=== PATIENT | male | born 1995 | race African-American/Black ===

== ENCOUNTER 2017-04-07 08:44 | Emergency (ER) | payer SELFPAY ==
[~2017-04-07] VITALS: Ht 175.3 cm; Wt 95.3 kg
[~2017-04-07 08:44] MED LIST: HYDR15SO4 PO
[2017-04-07 09:00] VITALS: BP 130/78
[2017-04-07] MEDS ORDERED: [UNRECOGNIZED DRUG - CODE] MM (09:20)
[2017-04-07] MEDS ORDERED: AMOX500C PO (09:20)
--- NOTE | 2017-04-07 09:20 | PHYS DOC ---
Past Medical History Past Medical History: Asthma Past Surgical History: No Surgical History Alcohol Use: Occasionally Drug Use: Marijuana Adult General Chief Complaint Chief Complaint: DENTAL PROBLEM HPI HPI Patient is a 21 year old male presents to the ED complaining of dental pain x 3 days. States he pulled his tooth out a week ago and notice a sore on his gums forming. Describes the pain as burning. Rates the pain as 7/10. Denies chest pain, shortness of breath, nausea/vomiting, dizziness, weakness, difficulty swallowing or tongue swelling. Review of Systems Review of Systems Constitutional: Denies fever or chills [] Eyes: Denies change in visual acuity, redness, or eye pain [] HENT: Denies nasal congestion or sore throat [] Respiratory: Denies cough or shortness of breath [] Cardiovascular: No additional information not addressed in HPI [] GI: Denies abdominal pain, nausea, vomiting, bloody stools or diarrhea [] : Denies dysuria or hematuria [] Musculoskeletal: Denies back pain or joint pain [] Integument: Denies rash or skin lesions [] Neurologic: Denies headache, focal weakness or sensory changes [] Endocrine: Denies polyuria or polydipsia [] All other systems were reviewed and found to be within normal limits, except as documented in this note. Allergies Allergies Allergies Coded Allergies Type Severity Reaction Last Updated Verified No Known Drug Allergies 04/27/16 No Physical Exam Physical Exam Constitutional: Well developed, well nourished, no acute distress, non-toxic appearance. [] HENT: Normocephalic, atraumatic, bilateral external ears normal, oropharynx moist, no oral exudates, nose normal. MILD LEFT LOWER DENTAL AVULSION. NO ABSCESS OR FLUCTUANCE. MINIMAL GUM IRRITATION.[] Eyes: PERRLA, EOMI, conjunctiva normal, no discharge. [] Neck: Normal range of motion, no tenderness, supple, no stridor. [] Cardiovascular:Heart rate regular rhythm, no murmur [] Lungs & Thorax: Bilateral breath sounds clear to auscultation [] Abdomen: Bowel sounds normal, soft, no tenderness, no masses, no pulsatile masses. [] Skin: Warm, dry, no erythema, no rash. [] Back: No tenderness, no CVA tenderness. [] Extremities: No tenderness, no cyanosis, no clubbing, ROM intact, no edema. [] Neurologic: Alert and oriented X 3, normal motor function, normal sensory function, no focal deficits noted. [] Psychologic: Affect normal, judgement normal, mood normal. [] Current Patient Data Vital Signs Vital Signs Date Time Temp Pulse Resp B/P (MAP) Pulse Ox O2 Delivery O2 Flow Rate FiO2 04/07/17 09:00 98.5 62 16 97 Room Air 98.5 EKG EKG [] Radiology/Procedures Radiology/Procedures [] Course & Med Decision Making Course & Med Decision Making Pertinent Labs and Imaging studies reviewed. (See chart for details) []Will prescribe Orajel and amoxicillin prophylactically. Discussed follow-up with his dentist later this week. Provided contact information/education. Patient given community resource list. Discussed reasons to return to the ED. Patient understands and agrees with plan. Dragon Disclaimer Dragon Disclaimer This electronic medical record was generated, in whole or in part, using a voice recognition dictation system. Departure Departure Impression: Primary Impression: Pain, dental Disposition: HOME, SELF-CARE Condition: STABLE Referrals: NO PCP (PCP) Patient Instructions: Dental Caries, Dental Pain Additional Instructions: Dental community resource list. Scripts Benzocaine (ORAL ANESTHETIC PASTE) 12 Gm Paste..g. 12 GM MM TID PRN Y for PAIN, #1 MISC Prov: SHIRA BYRD 04/07/17 Amoxicillin (AMOXICILLIN) 500 Mg Capsule 1 CAP PO TID, #30 CAP Prov: SHIRA BYRD 04/07/17 SHIRA BYRD Apr 07, 2017 09:20
== END 2017-04-07 09:47 | disposition home or self-care (01) ==
LOC: ER 08:44
DX: K08.89 Other specified disorders of teeth and supporting structures (principal); J45.909 Unspecified asthma, uncomplicated
CPT/HCPCS: 99283

== ENCOUNTER 2018-11-20 23:00 | Emergency (ER) | payer SELFPAY ==
[~2018-11-20] VITALS: Ht 177.8 cm; Wt 95.3 kg
[~2018-11-20 23:00] MED LIST changes: +AMOX500C PO; -HYDR15SO4 PO; +HYDR15SO6 PO; +[UNRECOGNIZED DRUG - CODE] MM
[2018-11-20 23:30] LABS: BILIRUBIN,URINE NEGATIVE (NEG); CLARITY,URINE CLEAR; COLOR,URINE YELLOW; NITRITE,URINE NEGATIVE (NEG); PROTEIN,URINE NEGATIVE (NEG-TRACE)
[2018-11-20 23:40] LABS: BACTERIA,URINE 0 /HPF (0-FEW); SQUAMOUS EPITHELIAL CELL,UR OCC /LPF; WBC,URINE OCC /HPF (0-4)
--- NOTE | 2018-11-21 00:17 | PHYS DOC ---
Past Medical History Past Medical History: Asthma, UTI Past Surgical History: Other Additional Past Surgical Histo: "Brain surgery years ago" Smoking: Less than 1pk/day Alcohol Use: Occasionally Drug Use: Marijuana Adult General Chief Complaint Chief Complaint: BLOOD IN URINE HPI HPI Patient is a 22 year old male who presents with painless hematuria that began at approximately 10 PM this evening. Patient states that he had a painful cramp in his stomach and an urge to urinate but when he attempted to urinate and he was unable initially. Patient had 2 massage the urine out of his penis which initially produced moderately dark urine that progressively became darker as more came out. The patient states that eventually there was some clots included with the hematuria. He also admits to year burning tearing the hematuria. He denies any abdominal pain currently. He also denies any nausea vomiting or chills. He admits to multiple tick bites and upper respiratory tract infections in the last 2 months. He has a history of one urinary tract infection 2 years ago. He has no other complaints at this time. Review of Systems Review of Systems Constitutional: Denies fever or chills Eyes: Denies redness or eye pain HENT: Denies nasal congestion or sore throat Respiratory: Denies cough or shortness of breath Cardiovascular: Denies chest pain or palpitations GI: Denies abdominal pain, nausea, or vomiting : Painless hematuria. Musculoskeletal: Denies back pain or joint pain Integument: Denies rash or skin lesions Neurologic: Denies headache, focal weakness or sensory changes Complete systems were reviewed and found to be within normal limits, except as documented in this note. Allergies Allergies Allergies Coded Allergies Type Severity Reaction Last Updated Verified No Known Drug Allergies 04/27/16 No Physical Exam Physical Exam Constitutional: Well developed, well nourished, no acute distress, non-toxic appearance Eyes: PERRL, EOMI, conjunctiva normal, no discharge Neck: Normal range of motion, no tenderness, supple Cardiovascular: Heart rate normal, regular rhythm Lungs & Thorax: Bilateral breath sounds clear to auscultation, no wheezing Abdomen: Soft, no tenderness Skin: Warm, dry, no erythema, no rash Back: No tenderness, no CVA tenderness Extremities: No tenderness, ROM intact, no edema Neurologic: Alert and oriented X 3, normal motor function, normal sensory functi on, no focal deficits noted Psychologic: Affect normal, judgement normal, mood normal Current Patient Data Vital Signs Vital Signs Date Time Temp Pulse Resp B/P (MAP) Pulse Ox O2 Delivery O2 Flow Rate FiO2 11/21/18 00:50 57 12 120/70 (87) 100 Room Air 11/20/18 23:08 98.4 98.4 Lab Values Laboratory Tests Test 11/20/18 23:15 11/21/18 00:20 Urine Color Yellow Urine Clarity Clear Urine pH 6.0 Urine Specific [place] 1.025 Urine Protein Negative mg/dL (NEG-TRACE) Urine Glucose (UA) Negative mg/dL (NEG) Urine Ketones (Stick) Negative mg/dL (NEG) Urine Blood Large (NEG) Urine Nitrite Negative (NEG) Urine Bilirubin Negative (NEG) Urine Urobilinogen Dipstick 1.0 mg/dL (0.2 mg/dL) Urine Leukocyte Esterase Negative (NEG) Urine RBC 11-20 /HPF (0-2) Urine WBC Occ /HPF (0-4) Urine Squamous Epithelial Cells Occ /LPF Urine Bacteria 0 /HPF (0-FEW) White Blood Count 10.5 x10^3/uL (4.0-11.0) Red Blood Count 5.05 x10^6/uL (4.30-5.70) Hemoglobin 14.9 g/dL (13.0-17.5) Hematocrit 43.4 % (39.0-53.0) Mean Corpuscular Volume 86 fL (79-100) Mean Corpuscular Hemoglobin 30 pg (25-35) Mean Corpuscular Hemoglobin Concent 34 g/dL (31-37) Red Cell Distribution Width 13.5 % (11.5-14.5) Platelet Count 264 x10^3/uL (140-400) Neutrophils (%) (Auto) 44 % (31-73) Lymphocytes (%) (Auto) 43 % (24-48) Monocytes (%) (Auto) 8 % (0-9) Eosinophils (%) (Auto) 4 % (0-3) H Basophils (%) (Auto) 1 % (0-3) Neutrophils # (Auto) 4.7 x10^3uL (1.8-7.7) Lymphocytes # (Auto) 4.5 x10^3/uL (1.0-4.8) Monocytes # (Auto) 0.9 x10^3/uL (0.0-1.1) Eosinophils # (Auto) 0.5 x10^3/uL (0.0-0.7) Basophils # (Auto) 0.1 x10^3/uL (0.0-0.2) Sodium Level 139 mmol/L (136-145) Potassium Level 3.9 mmol/L (3.5-5.1) Chloride Level 105 mmol/L (98-107) Carbon Dioxide Level 27 mmol/L (21-32) Anion Gap 7 (6-14) Blood Urea Nitrogen 15 mg/dL (8-26) Creatinine 1.3 mg/dL (0.7-1.3) Estimated GFR (Cockcroft-Gault) 82.1 BUN/Creatinine Ratio 12 (6-20) Glucose Level 98 mg/dL (70-99) Calcium Level 9.3 mg/dL (8.5-10.1) Magnesium Level 1.6 mg/dL (1.8-2.4) L Total Bilirubin 0.2 mg/dL (0.2-1.0) Aspartate Amino Transferase (AST) 16 U/L (15-37) Alanine Aminotransferase (ALT) 39 U/L (16-63) Alkaline Phosphatase 101 U/L (46-116) Total Protein 7.1 g/dL (6.4-8.2) Albumin 3.7 g/dL (3.4-5.0) Albumin/Globulin Ratio 1.1 (1.0-1.7) Lipase 133 U/L (73-393) Laboratory Tests 11/21/18 00:20 Laboratory Tests 11/21/18 00:20 EKG EKG [] Radiology/Procedures Radiology/Procedures PROCEDURE: CT ABDOMEN PELVIS WO CONTRAST EXAM: CT Abdomen and Pelvis without IV contrast CLINICAL HISTORY: Right-sided abdominal pain. Hematuria. Evaluate for calculus. COMPARISON: none TECHNIQUE: Helical CT of the abdomen and pelvis without intravenous contrast. Axial, coronal and sagittal reformatted images were generated. PQRS compliance statement - One or more of the following individualized dose reduction techniques were utilized for this study: 1. Automated exposure control 2. Adjustment of the mA and/or kV according to patient size 3. Use of iterative reconstruction technique FINDINGS: Lack of intravenous contrast limits evaluation of solid organs, vasculature, and lymph nodes. Lower chest: Lung bases are clear. Abdomen and Pelvis: No focal liver lesion. Gallbladder is decompressed. No biliary dilatation. Spleen is unremarkable. Adrenal glands are normal. No focal renal lesion. No hydronephrosis. No hydroureter. Bladder is unremarkable. Moderate colonic stool content is seen. No small or large bowel dilatation. Appendix is normal. Small fat-containing periumbilical hernia. No abdominal or pelvic ascites. No abdominal pelvic lymphadenopathy. Bones: Osseous structures are grossly unremarkable. IMPRESSION: 1. No renal tract calculus. No hydronephrosis or hydroureter. 2. Moderate colonic stool content is seen. No evidence for bowel obstruction. 3. Small fat-containing periumbilical hernia. Electronically signed by: Du Harrington MD (11/21/2018 12:33 AM) [facility] Course & Med Decision Making Course & Med Decision Making Patient is a 22-year-old male who presents with painless hematuria. The patient is not in any current pain and has no nausea. He denies any UTI symptoms. Urinalysis only showed blood. CT scan was ordered but didn't show any kidney stones or intra-bladder masses. The patient was counseled to follow up with urology outpatient to further evaluate the cause of his hematuria. Patient stable for discharge with outpatient follow-up with PCP. Discussed findings and plan with patient and family, who acknowledge understanding and agreement. Dragon Disclaimer Dragon Disclaimer This electronic medical record was generated, in whole or in part, using a voice recognition dictation system. Departure Departure Impression: Primary Impression: Hematuria Disposition: 01 HOME, SELF-CARE Condition: STABLE Referrals: NO PCP (PCP) ALHAJI BAKER MD Patient Instructions: Hematuria, Adult Problem Qualifiers Primary Impression: Hematuria Hematuria type: unspecified type Qualified Codes: R31.9 - Hematuria, unspecified CELIA DELAROSA DO Nov 21, 2018 00:17
[2018-11-21 00:33] LABS: BASO # 0.1 x10^3/uL (0.0-0.2); BASO % 1 % (0-3); EOS # 0.5 x10^3/uL (0.0-0.7); EOS % 4 % (0-3); HEMATOCRIT 43.4 % (39.0-53.0); HEMOGLOBIN 14.9 g/dL (13.0-17.5); LYMPH # 4.5 x10^3/uL (1.0-4.8); LYMPH % 43 % (24-48); MEAN CORPUSCULAR HEMOGLOBIN 30 pg (25-35); MEAN CORPUSCULAR HGB CONC 34 g/dL (31-37); MEAN CORPUSCULAR VOLUME 86 fL (79-100); MONO # 0.9 x10^3/uL (0.0-1.1); MONO % 8 % (0-9); NEUT # 4.7 x10^3uL (1.8-7.7); NEUT % 44 % (31-73); PLATELET COUNT 264 x10^3/uL (140-400); RED BLOOD COUNT 5.05 x10^6/uL (4.30-5.70); RED CELL DISTRIBUTION WIDTH 13.5 % (11.5-14.5); WHITE BLOOD COUNT 10.5 x10^3/uL (4.0-11.0)
--- NOTE | 2018-11-21 00:36 | RAD ---
EXAM: CT Abdomen and Pelvis without IV contrast CLINICAL HISTORY: Right-sided abdominal pain. Hematuria. Evaluate for calculus. COMPARISON: none TECHNIQUE: Helical CT of the abdomen and pelvis without intravenous contrast. Axial, coronal and sagittal reformatted images were generated. PQRS compliance statement - One or more of the following individualized dose reduction techniques were utilized for this study: 1. Automated exposure control 2. Adjustment of the mA and/or kV according to patient size 3. Use of iterative reconstruction technique FINDINGS: Lack of intravenous contrast limits evaluation of solid organs, vasculature, and lymph nodes. Lower chest: Lung bases are clear. Abdomen and Pelvis: No focal liver lesion. Gallbladder is decompressed. No biliary dilatation. Spleen is unremarkable. Adrenal glands are normal. No focal renal lesion. No hydronephrosis. No hydroureter. Bladder is unremarkable. Moderate colonic stool content is seen. No small or large bowel dilatation. Appendix is normal. Small fat-containing periumbilical hernia. No abdominal or pelvic ascites. No abdominal pelvic lymphadenopathy. Bones: Osseous structures are grossly unremarkable. IMPRESSION: 1. No renal tract calculus. No hydronephrosis or hydroureter. 2. Moderate colonic stool content is seen. No evidence for bowel obstruction. 3. Small fat-containing periumbilical hernia. Electronically signed by: Du Harrington MD (11/21/2018 12:33 AM) [facility]
[2018-11-21 00:43] LABS: CALCIUM 9.3 mg/dL (8.5-10.1); CREATININE 1.3 mg/dL (0.7-1.3); GFR 82.1; POTASSIUM 3.9 mmol/L (3.5-5.1)
[2018-11-21 00:48] LABS: ALBUMIN 3.7 g/dL (3.4-5.0); ALBUMIN/GLOBULIN RATIO 1.1 (1.0-1.7); MAGNESIUM 1.6 mg/dL (1.8-2.4); TOTAL BILIRUBIN 0.2 mg/dL (0.2-1.0); TOTAL PROTEIN 7.1 g/dL (6.4-8.2)
[2018-11-21 00:50] VITALS: BP 120/70
== END 2018-11-21 01:03 | disposition home or self-care (01) ==
LOC: ER 23:00
DX: R31.9 Hematuria, unspecified (principal); J45.909 Unspecified asthma, uncomplicated; F17.200 Nicotine dependence, unspecified, uncomplicated
CPT/HCPCS: 36415; 74176; 80053; 81001; 83690; 83735; 85025; 99285-25